=== PATIENT | female | born 1985 | race Caucasian/White ===

== ENCOUNTER 2016-04-27 18:31 | Emergency (ER) | payer OTHER | END 2016-04-27 19:44 | disposition home or self-care (01) | LOC: ER 18:31 | DX: J32.9 Chronic sinusitis, unspecified (principal); H57.12 Ocular pain, left eye; Q85.00 Neurofibromatosis, unspecified; Z79.1 Long term (current) use of non-steroidal anti-inflammatories (NSAID); Z79.899 Other long term (current) drug therapy | CPT/HCPCS: 70450; 99282 ==

== ENCOUNTER 2016-06-03 16:57 | Emergency (ER) | payer OTHER | END 2016-06-03 17:40 | disposition home or self-care (01) | LOC: ER 16:57 | DX: L29.9 Pruritus, unspecified (principal); L23.9 Allergic contact dermatitis, unspecified cause | CPT/HCPCS: 96372; 99282-25 ==

== ENCOUNTER 2016-07-05 08:38 | Emergency (ER) | payer OTHER ==
[2016-07-05 09:20] LABS: BASO % 0.4 % (0.1-1.2); EOS # 0.1 10_X3_uL (0.0-0.4); EOS % 0.8 % (0.7-5.8); GRAN % 74.3 % (34.0-71.1); HEMATOCRIT 38.8 % (34-45); LYMPH # 1.7 10_X3_uL (1.2-3.7); LYMPH % 15.6 % (19.3-51.7); MEAN CORPUSCULAR HEMOGLOBIN 31.4 pg (27.0-33.0); MEAN CORPUSCULAR HGB CONC 36.1 g/dL (32.0-36.0); MEAN PLATELET VOLUME 9.3 fl (7.5-11.5); MONO % 8.9 % (4.7-12.5); PLATELET COUNT 277 x10_3/uL (182-369); RED BLOOD COUNT 4.46 x10_6/uL (3.9-5.2); WHITE BLOOD COUNT 10.8 x10_3/uL (4.0-10.0)
[2016-07-05 09:33] LABS: URINE BILIRUBIN NEGATIVE (NEGATIVE); URINE BLOOD TRACE (NEGATIVE); URINE GLUCOSE (UA) NORMAL (NORMAL); URINE KETONE NEGATIVE (NEGATIVE); URINE LEUKOCYTE ESTERASE TRACE (NEGATIVE); URINE NITRATE NEGATIVE (NEGATIVE); URINE PROTEIN NEGATIVE (NEGATIVE); UROBILINOGEN NORMAL mg/dL (<1.0)
[2016-07-05 09:35] LABS: ALBUMIN 4.7 gm/dL (3.4-5.0); ALKALINE PHOSPHATASE 29 U/L (50-136); ALT/SGPT 17 U/L (3.5-33.9); AMYLASE 49 U/L (15.62-74.58); AST/SGOT 16 U/L (7.04-26.96); BILIRUBIN,TOTAL 0.87 mg/dL (0.0-1.0); BLOOD UREA NITROGEN 9 mg/dL (7-18); CALCIUM 9.3 mg/dL (8.7-10.7); CARBON DIOXIDE 25 mmol/L (21-32); CREATININE 0.5 mg/dL (0.6-1.3); GLUCOSE,RANDOM 104 mg/dL (70-99); LIPASE 17 U/L (6.75-60.75); POTASSIUM 4.3 mmol/L (3.5-5.1); SODIUM 137 mmol/L (136-145); TOTAL PROTEIN 7.3 gm/dL (6.4-8.2)
[2016-07-05 09:41] LABS: URINE BACTERIA TRACE (NONE SEEN); URINE RBC 0-5 /[HPF] (0-2); URINE SQUAMOUS EPITHELIAL CELL 0-10 /[HPF] (NONE SEEN); URINE WBC 0-5 /[HPF] (0-5)
== END 2016-07-05 12:05 | disposition home or self-care (01) ==
LOC: ER 08:38
PROVIDERS: Family Medicine
DX: J02.9 Acute pharyngitis, unspecified (principal); R10.11 Right upper quadrant pain; R10.31 Right lower quadrant pain
CPT/HCPCS: 36415; 80053; 81001; 81025; 82150; 83690; 85025; 87070; 87880; 99070; 99284-25

== ENCOUNTER 2016-10-24 15:07 | Emergency (ER) | payer OTHER | END 2016-10-24 16:11 | disposition home or self-care (01) | LOC: ER 15:07 | DX: B86 Scabies (principal); Q85.00 Neurofibromatosis, unspecified; G43.909 Migraine, unspecified, not intractable, without status migrainosus; M41.9 Scoliosis, unspecified | CPT/HCPCS: 99282 ==